=== PATIENT | female | born 1980 | race African-American/Black ===

== ENCOUNTER 2017-10-07 14:00 | Inpatient (IN) | payer OTHER ==
[2017-10-07] MEDS: ELECTROLYTE-148 SOLN 1,000 ML IV SCH ×2 (15:00→18:39)
[2017-10-07 15:47] VITALS: BMI 33.5
[2017-10-07] MEDS ORDERED: FENTANYL/BUPIVACAINE/NS/PF - PCEA - 50 ML DISP.SYRIN EP ONE (16:25)
[2017-10-07 16:28] LABS: BASO % 0.3 % (0-2.0); EOS % 0.3 % (0-4.5); HEMATOCRIT 39.3 % (32.4-45.2); HEMOGLOBIN 12.6 GM/dL (10.7-15.3); LYMPH % 9.4 % (8-40); MCH 24.3 pg (25.7-33.7); MEAN PLT VOLUME 10.1 fl (7.5-11.1); MONO % 5.7 % (3.8-10.2); NEUT % 84.3 % (42.8-82.8); PLATELET COUNT 171 K/MM3 (134-434); RBC 5.18 M/mm3 (3.60-5.2); RDW 15.8 % (11.6-15.6); WHITE BLOOD COUNT 9.4 K/mm3 (4.0-10.0)
--- NOTE | 2017-10-07 16:29 | HP ---
Past Medical History - Admission History of Present Illness: 36 yo @ 40 0/7 by first trimester ultrasound, EDC 10/07/2017 complicated by: 1. 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 AMA - reassuring cell-free DNA and AFP Patient reports contractions which began at 1230 which increased in intensity and frequency. She reports movement, denies leakage of fluid or vaginal bleeding. 3. Low lying placenta - resolved 4. Obesity - 20 lb weight gain this She was found to be 2 cm, with occasional variable decelerations. The decision was made for admission for monitoring. History Source: Patient Limitations to Obtaining History: No Limitations - Past Medical History Cardiovascular: No: HTN ...: 1 ...Para: 0 ...Term: 0 ...: 0 ...Spon : 0 ...Induced : 0 ...Multiple Gestation: 0 ...LMP: 01/02/17 ... Weeks Gestation by Dates: 39.5 ...EDC by Dates: 10/09/16 ...EDC by Sono: 10/07/16 Heme/Onc: No: Anemia Endocrine: Yes: Other (PCOS) - Past Surgical History Past Surgical History: Yes: None Hx Myomectomy: No Hx Transabdominal Cerclage: No - Smoking History Smoking history: Never smoked Have you smoked in the past 12 months: No - Alcohol/Substance Use Hx Alcohol Use: No History of Substance Use: reports: None - Social History History of Recent Travel: No Home Medications - Allergies Allergies/Adverse Reactions: Allergies Allergy/AdvReac Type Severity Reaction Status Date / Time No Known Allergies Allergy Verified 10/07/17 15:35 - Home Medications Home Medications: Ambulatory Orders Vitamins (Sjr) - 1 tab PO DAILY 10/07/17 Family Disease History - Family Disease History Family History: Denies Review of Systems - Review of Systems Constitutional: reports: No Symptoms HENT: reports: No Symptoms Neck: reports: No Symptoms Cardiovascular: reports: No Symptoms Respiratory: reports: No Symptoms Gastrointestinal: reports: No Symptoms Genitourinary: reports: No Symptoms Musculoskeletal: reports: No Symptoms Integumentary: reports: No Symptoms Endocrine: reports: No Symptoms Hematology/Lymphatic: reports: No Symptoms Psychiatric: reports: No Symptoms Physical Exam - Maternity Vital Signs: Vital Signs Temperature 98.1 F 10/07/17 15:15 Pulse Rate 79 10/07/17 15:15 Respiratory Rate 20 10/07/17 15:15 Blood Pressure 107/56 10/07/17 15:15 O2 Sat by Pulse Oximetry (%) Constitutional: Yes: Well Nourished, No Distress, Calm Neck: Yes: Supple Cardiovascular: Yes: Regular Rate and Rhythm Lungs: Clear to auscultation - Abdominal Exam/OB Fundal Height: 40 Number of Fetuses: Single Presentation: Vertex Contractions: Yes Regularity: Regular Intensity: Moderate Monitor Mode: External Heart Rate (range): 135 Category: II Accelerations: Non-Uniform Decelerations: Variable - Vaginal Exam/OB Vaginal Bleediing: No Speculum Exam: No Dilatation (cm): 2 Effacement (%): 80 Amniotic Membrane Status: Intact Amniotic Fluid: Yes: Clear Station: -2 - Physical Exam Musculoskeletal: Yes: WNL Extremities: Yes: WNL Edema: No Psychiatric: Yes: Alert, Oriented - Labs Lab Results: PNL - O positive, antibody negative; RPR NR; HBS Ag negative; HIV negative; GBS negative; Rubella immune Hemorrhage Risk Assessment - Risk Factors Medium Risk Factors: Yes: None High Risk Factors: Yes: None Risk Score: 1 Risk Level: Medium Risk Assessment/Plan 36 yo @ 40 wks early labor, category I FHT 1. Admit to L&D 2. Routine labs collected and sent 3. GBS negative 4. Category II FHT, placed on L lateral position, O2 via facemask; will monitor 5. Will offer pain control upon patients request 6. Will continue expectant management
[2017-10-07 16:44] LABS: INR 0.98 (0.82-1.09); PROTHROMBIN TIME (PATIENT) 11.1 SEC (9.98-11.88)
[2017-10-07 16:47] LABS: ACTIVATED PTT 28.8 SECONDS (26.9-34.4)
[2017-10-07] MEDS ORDERED: FENTANYL/BUPIVACAINE/NS/PF - PCEA - 50 ML DISP.SYRIN EP SCH ×2 (17:00→17:15)
[2017-10-07] MEDS ORDERED: NALOXONE HCL 0.4 MG/ML VIAL IVPUSH PRN (17:11)
[2017-10-07 17:33] LABS: ANION GAP 11 (8-16); BLOOD UREA NITROGEN 7 mg/dL (7-18); CALCIUM 8.4 mg/dL (8.5-10.1); CHLORIDE 104 mmol/L (98-107); CO2 22 mmol/L (21-32); CREATININE 0.4 mg/dL (0.55-1.02); GLUCOSE,RANDOM 84 mg/dL (74-106); SODIUM 137 mmol/L (136-145)
--- NOTE | 2017-10-07 19:33 | PN ---
Progress Note (short form) - Note Progress Note: Patient examined found to be 3 cm. Reviewed FHT 180 minimal variability, variable decelerations Discussed nonreassuring tracing, no improvement with change in maternal position, O2 via facemask, IV fluid bolus. Reviewed need for intervention and patient is currently remote from vaginal delivery, plan for primary delivery. Discussed risks including but not limited to infection, bleeding requiring transfusion and damage to surrounding organs such as the bowel or bladder. Discussed risk of injury to . Discussed risk of wound infection and separation. Discussed need for planning of future children and possibility of abnormal placentation. All questions answered. Patient expressed understanding. Nursing and OR staff notified. Will proceed to OR
[2017-10-07] MEDS ORDERED: ceFAZolin SODIUM 1 GM VIAL ONE (19:36)
[2017-10-07] MEDS ORDERED: SODIUM CHLORIDE 0.9% P/F 10 ML VIAL IJ ONE (19:36)
[2017-10-07] MEDS ORDERED: ePHEDrine SULFATE 50 MG/1 ML AMPULE ONE (19:40)
[2017-10-07] MEDS ORDERED: ONDANSETRON 4 MG/2 ML VIAL IVPUSH PRN (19:42)
[2017-10-07] MEDS ORDERED: OXYTOCIN 10 UNITS/ML VIAL ONE (19:56)
[2017-10-07] MEDS ORDERED: KETOROLAC TROMETHAMINE 30 MG/1 ML VIAL ONE (19:59)
[2017-10-07] MEDS ORDERED: morphine SULFATE/Preservative Free 0.5 MG/ML (1cc Syringe) ONE ×3 (20:05)
[2017-10-07] MEDS ORDERED: PHENYLEPHRINE HCL 10 MG/1 ML SINGLE DOSE VIAL ONE (20:42)
[2017-10-07 21:18] LABS: VENOUS PC02 47.3 mmHg (38-52); VENOUS PH 7.29 (7.32-7.42); VENOUS PO2 21.1 mmHg (28-48)
--- NOTE | 2017-10-07 21:20 | PN ---
Delivery - Delivery Type of Anesthesia: Epidural, Spinal Episiotomy/Laceration: None EBL (cc): 600 Delivery, Single - Stages of Labor Date 1st Stage Initiatied: 10/07/17 Time 1st Stage Initiated: 12:00 Date of Delivery: 10/07/17 Time of Delivery: 20:19 Time Placenta Delivered: 20:20 - Condition of Infant Canine Service Teacher/Microwave Technician Present: Yes Name: Marielle Garnica Infant Gender: Male Weight: 6 lb 10 oz Position: Left, OT Total Hours ROM (Hrs/Mins): 1h15m - 1 Minute Total Score: 9 5 Minutes Total Score: 9 - Feeding Plan Initial Plan: Exclusive throughout hospitalization Remarks - Remarks Remarks: Surgeon: Fran Assist: Oma Anesthesia: Guon / De Dios IVF: 900 UOP: 150 Findings: Male LOT position, meconium fluid, 9,9, wt 6-10; length 20.5; right paratubal cyst; polycystic-appearing ovaries, normal fallopian tubes bilaterally Dictation: [id number]
[2017-10-07] MEDS ORDERED: SENNOSIDES/DOCUSATE COMBO (SENNA PLUS) TABLET (UD) PO PRN (21:22)
[2017-10-07] MEDS ORDERED: METHYLERGONOVINE MALEATE 0.2 MG/1 ML AMP IM PRN (21:22)
[2017-10-07] MEDS ORDERED: BENZOCAINE 28 GM HEMORRHOIDAL OINTMENT TP PRN (21:22)
[2017-10-07] MEDS ORDERED: oxyCODONE HCL 5 MG TABLET PO PRN ×2 (21:22)
[2017-10-07] MEDS ORDERED: WITCH HAZEL 50% (TUCKS) 40 PAD/JAR PAD TP PRN (21:22)
[2017-10-07] MEDS ORDERED: BENZOCAINE 20% 57 GM BOTTLE TP PRN (21:22)
[2017-10-07] MEDS ORDERED: OXYTOCIN 20 UNITS in 0.9% NS 20 UNIT/1,000 ML INFUS.BAG IV ONE (21:25)
[2017-10-07] MEDS: OXYTOCIN 20 UNITS in 0.9% NS 20 UNIT/1,000 ML INFUS.BAG IV SCH (21:30)
[2017-10-07] MEDS ORDERED: IBUPROFEN 800 MG/8 ML IJ IVPB ONE (21:37)
[2017-10-07] MEDS: IBUPROFEN 800 MG/8 ML IJ IVPB PRN (21:40)
[2017-10-08] MEDS: OXYTOCIN 20 UNITS in 0.9% NS 20 UNIT/1,000 ML INFUS.BAG IV SCH ×2 (05:12→21:58)
--- NOTE | 2017-10-08 07:07 | PN ---
Post Progress Note - Subjective Subjective: Patient without acute complaints. Tolerating clears, without complaints of nausea or vomiting. No ambulation yet. Denies fevers or chills. Denies chest pain, shortness of breath Pain well controlled with IV medication Patel in place, draining clear fluid Denies flatus. Type of Delivery: Primary C/S Vital Signs: Vital Signs Temperature 97.3 F L 10/08/17 06:00 Pulse Rate 97 H 10/08/17 06:00 Respiratory Rate 18 10/08/17 06:00 Blood Pressure 110/59 10/08/17 06:00 O2 Sat by Pulse Oximetry (%) 100 10/07/17 22:15 Breast Exam: Yes: Engorged Uterus: Yes: Fundus Firm, Fundus below umbilicus Incision: Yes: Dressing dry and intact. No: Redness, Oozing Abdomen/GI: Yes: Abdomen soft, Tender (mild incisional), Passing flatus, Tolerating PO Lochia: Yes: Serosa Extremities: Yes: Calves non-tender, Edema (trace) Activity: Ambulating - Labs Labs: CBC WBC 9.4 K/mm3 (4.0-10.0) 10/07/17 16:20 RBC 5.18 M/mm3 (3.60-5.2) 10/07/17 16:20 Hgb 12.6 GM/dL (10.7-15.3) 10/07/17 16:20 Hct 39.3 % (32.4-45.2) 10/07/17 16:20 MCV 76.0 fl (80-96) L 10/07/17 16:20 MCH 24.3 pg (25.7-33.7) L 10/07/17 16:20 MCHC 32.0 g/dl (32.0-36.0) 10/07/17 16:20 RDW 15.8 % (11.6-15.6) H 10/07/17 16:20 Plt Count 171 K/MM3 (134-434) 10/07/17 16:20 MPV 10.1 fl (7.5-11.1) 10/07/17 16:20 Neutrophils % 84.3 % (42.8-82.8) H 10/07/17 16:20 Lymphocytes % 9.4 % (8-40) 10/07/17 16:20 Monocytes % 5.7 % (3.8-10.2) 10/07/17 16:20 Eosinophils % 0.3 % (0-4.5) 10/07/17 16:20 Basophils % 0.3 % (0-2.0) 10/07/17 16:20 Assessment/Plan 36 yo POD # 1 s/p primary CD, afebrile, vital signs stable, doing well 1. Continue routine postoperative care. 2. Follow up AM CBC 3. Rh positive status, no rhogam indicated. 4. Encourage ambulation and incentive spirometer use 5. Continue oral pain medication 6. Anticipate discharge home postoperative day #3 or #4
--- NOTE | 2017-10-08 07:32 | OP ---
DATE OF OPERATION: 10/07/2017 PREOPERATIVE DIAGNOSIS: Non-reassuring tracing. POSTOPERATIVE DIAGNOSIS: Non-reassuring tracing. SURGEON: Spencer Cervantes M.D. LUBRICATING MACHINE TENDER: Evy Ernandez M.D. ANESTHESIOLOGIST: Albin Cummins M.D., and Brandy De Dios DO INTRAVENOUS GIVEN: 900 URINE OUTPUT: 150. ESTIMATED BLOOD LOSS: 600. FINDINGS: A male in LOT position, Apgars 9 and 9. Meconium fluid. Nuchal cord. Weight 6 pounds 10 pounds, length 20-1/2 inches. A right paratubal cyst. Bilateral polycystic-appearing ovaries. Normal fallopian tubes bilaterally. INDICATIONS: The patient is a 36-year-old 1, para 0, with a history of GDMA1, who presented with the chief complaint contractions. She was found to have variable decelerations spontaneously. She was monitored, and she was noted to have tachycardia, which was not responsive to change in maternal position, IV fluid bolus and oxygen via face mask. She was counseled regarding the need for a primary for non-reassuring tracing. She was counseled regarding the risks, benefits, alternatives and complications of the procedure, including infection, bleeding, damage to surrounding organs, such as bowel, bladder and ureters, and injury to baby. She expressed understanding and was brought to the operating room. DESCRIPTION OF PROCEDURE: When anesthesia was found to be adequate, the patient was prepped and draped in the normal sterile fashion and placed in the dorsal supine position with a leftward tilt. An approximately 11-cm skin incision was made with a knife and carried down to the underlying rectus muscle using Bovie electrocautery. The fascia was nicked in the midline and extended laterally using Foley scissors. Attention was brought to the inferior portion, which was tented up using Sharri clamps and resected off the underlying rectus muscles using the Foley scissors. Attention was brought to the superior portion, where, in a similar fashion, it was tented up using Sharri clamps and dissected off the underlying rectus muscles using Foley scissors. The rectus muscles were in the midline, and the peritoneum was entered bluntly and extended laterally and superiorly. The vesicouterine peritoneum was identified, entered sharply, and extended laterally using Metzenbaum scissors. Hysterotomy was performed and extended laterally using bandage scissors. The 's head was brought to the hysterotomy site. Caput was noted and acynclitic. The infant's head was delivered. Nuchal cord was noted and reduced. The shoulders and body followed, without difficulty. The cord was clamped and cut. Cord blood and cord gases were collected and sent. The infant was handed to awaiting NICU staff. The placenta was extracted. The uterus was cleared of all clot and debris. The uterus was closed using 0 Biosyn in running layers; the 2nd layer was an imbricated layer. The vesicouterine peritoneum was reapproximated using 0 Biosyn in running fashion. The bilateral ovaries were noted to be polycystic appearing, and a right paratubal cyst was noted and a portion of it was sent to Pathology. The bilateral fallopian tubes were noted to be normal bilaterally. Irrigation was performed. The peritoneum was closed using 2-0 Biosyn in running fashion. The rectus muscles were reapproximated using 0 Biosyn in interrupted fashion. The fascia was closed using 0 Vicryl in a running fashion. The subcutaneous fat was closed using 2-0 Biosyn in an interrupted fashion. The skin was reapproximated using 3-0 Vicryl. The patient tolerated the procedure well. Estimated blood loss was 600 mL. The patient was brought to the recovery room in stable condition. SPENCER CERVANTES M.D. [id number]
[2017-10-08 07:50] LABS: BASO % 0.1 % (0-2.0); EOS % 0.1 % (0-4.5); HEMOGLOBIN 10.6 GM/dL (10.7-15.3); LYMPH % 6.4 % (8-40); MCHC 31.2 g/dl (32.0-36.0); MONO % 5.1 % (3.8-10.2); NEUT % 88.3 % (42.8-82.8); PLATELET COUNT 171 K/MM3 (134-434); RBC 4.42 M/mm3 (3.60-5.2); WHITE BLOOD COUNT 12.4 K/mm3 (4.0-10.0)
[2017-10-08] MEDS: IBUPROFEN 800 MG/8 ML IJ IVPB PRN (08:05)
[2017-10-08] MEDS: ENOXAPARIN NA (PORCINE) 40 MG/0.4 ML DISP.SYRIN SQ SCH (09:22)
--- NOTE | 2017-10-08 12:07 | PN ---
Progress Note (short form) - Note Progress Note: Pt s/p csection day#1. Doing well, no complaints. Continute current treatment
[2017-10-08] MEDS: SIMETHICONE 80 MG TAB.CHEW (FP) PO PRN ×2 (16:35→23:25)
[2017-10-08] MEDS: ACETAMINOPHEN 325 MG TABLET (FP) PO PRN ×2 (16:35→23:26)
[2017-10-08] MEDS: IBUPROFEN 600 MG TABLET (FP) PO PRN ×2 (16:36→23:25)
[2017-10-08] MEDS ORDERED: BISACODYL 10 MG SUPP.RECT RC PRN (21:23)
--- NOTE | 2017-10-09 07:34 | PN ---
Progress Note (short form) - Note Progress Note: pod 2 , afebrile , has mild cramps CBC, BMP 10/08/17 07:03 10/07/17 16:20 abdomen soft, no distension , no cva Last Vital Signs Temp Pulse Resp BP Pulse Ox 97.9 F 96 H 18 126/71 100 10/08/17 22:00 10/08/17 22:00 10/08/17 22:00 10/08/17 22:00 10/07/17 22:15 incision dry, clean uterus firm no calf tenderness no excess vaginal bleeding impression pod 2 afebrile ,, ambulating, passing gas plan advance diet, cbc in am pain management
[2017-10-09] MEDS: SIMETHICONE 80 MG TAB.CHEW (FP) PO PRN ×3 (08:53→20:46)
[2017-10-09] MEDS: IBUPROFEN 600 MG TABLET (FP) PO PRN ×3 (08:53→20:46)
[2017-10-09] MEDS: ACETAMINOPHEN 325 MG TABLET (FP) PO PRN ×3 (08:54→20:46)
[2017-10-09] MEDS: ENOXAPARIN NA (PORCINE) 40 MG/0.4 ML DISP.SYRIN SQ SCH (10:50)
[2017-10-10] MEDS: IBUPROFEN 600 MG TABLET (FP) PO PRN ×2 (04:04→09:38)
[2017-10-10] MEDS: SIMETHICONE 80 MG TAB.CHEW (FP) PO PRN ×2 (04:04→09:38)
[2017-10-10] MEDS: ACETAMINOPHEN 325 MG TABLET (FP) PO PRN ×2 (04:05→09:39)
[2017-10-10 07:28] LABS: BASO % 0.4 % (0-2.0); EOS % 1.6 % (0-4.5); HEMOGLOBIN 9.5 GM/dL (10.7-15.3); LYMPH % 19.2 % (8-40); MCH 24.2 pg (25.7-33.7); MCHC 31.6 g/dl (32.0-36.0); MEAN CELL VOLUME 76.7 fl (80-96); MEAN PLT VOLUME 9.9 fl (7.5-11.1); MONO % 6.7 % (3.8-10.2); NEUT % 72.1 % (42.8-82.8); PLATELET COUNT 173 K/MM3 (134-434); RBC 3.91 M/mm3 (3.60-5.2); RDW 16.5 % (11.6-15.6); WHITE BLOOD COUNT 8.3 K/mm3 (4.0-10.0)
[2017-10-10] MEDS: ENOXAPARIN NA (PORCINE) 40 MG/0.4 ML DISP.SYRIN SQ SCH (09:40)
--- NOTE | 2017-10-10 10:51 | DS ---
Physical Exam-WASTE PICKER Vital Signs: Vital Signs Temperature 97.9 F 10/09/17 22:00 Pulse Rate 95 H 10/09/17 22:00 Respiratory Rate 18 10/09/17 22:00 Blood Pressure 124/76 10/09/17 22:00 O2 Sat by Pulse Oximetry (%) 100 10/07/17 22:15 Constitutional: Yes: Well Nourished, No Distress, Calm Eyes: Yes: WNL, Conjunctiva Clear HENT: Yes: WNL, Atraumatic, Normocephalic Neck: Yes: WNL, Supple, Trachea Midline Cardiovascular: Yes: WNL, Regular Rate and Rhythm Respiratory: Yes: WNL, Regular, CTA Bilaterally Gastrointestinal: Yes: WNL, Normal Bowel Sounds, Soft ...Rectal Exam: Yes: WNL, Deferred Renal/: Yes: WNL ....Post : Yes: Uterus firm, Uterus non-tender, Slight lochia rubra Breast(s): Yes: WNL Musculoskeletal: Yes: WNL Extremities: Yes: WNL Edema: LLE: Trace, RLE: Trace Integumentary: Yes: WNL Wound/Incision: Yes: Clean/Dry, Well Approximated, Sutures Intact, Steri Strips , Open to air Neurological: Yes: WNL, Alert, Oriented ...Motor Strength: WNL Psychiatric: Yes: WNL, Alert, Oriented Labs: CBC, BMP 10/10/17 07:15 10/07/17 16:20 Delivery - Delivery Section: Primary, Low Flap Transverse Type of Anesthesia: Epidural, Spinal Episiotomy/Laceration: None EBL (cc): 600 Delivery, Single - Stages of Labor Date 1st Stage Initiatied: 10/07/17 Time 1st Stage Initiated: 12:00 Date of Delivery: 10/07/17 Time of Delivery: 20:19 Time Placenta Delivered: 20:20 Placenta: Yes: Manual Removal, Normal Configuration - Condition of Infant Audio Tape Librarian/Traffic Operations Manager Present: Yes Name: Marielle Garnica Infant Gender: Male Weight: 3.005 kg Position: Left, OT Total Hours ROM (Hrs/Mins): 1h15m - 1 Minute Total Score: 9 5 Minutes Total Score: 9 - [place] Feeding Plan Initial Plan: Exclusive throughout hospitalization Discharge Summary Reason For Visit: LABOR ADMISSION at term Non-reassuring FHT Procedures: Principal: Primary LT C/S Other Procedures: Excision of paratubal cyst Hospital Course: Normal recovery Condition: Good - Instructions Diet, Activity, Other Instructions: Physical activity Resume your normal everyday activity as tolerated no heavy lifting or exercise until seen by your surgeon. You may walk unlimited katherine of and climb stairs. You may resume driving the car when you feel safe and comfortable behind the wheel. No sexual activity as instructed. Wound care If you have a bandage, leave it on, and keep dry for 48-72 hours. After that time discard the outer bandage. If they are tapes on the skin under the out of bandage leave them in place. They will peel off in the next 7 to 10 days. Do Not Peel them off. You may shower the day after surgery. If there are tapes present on the skin, you may shower over them. Diet There are no dietary restrictions. Eat healthy, high-fiber foods. Drink 6 to 8 glasses of liquid each day. This will assist in keeping your bowels are regular. Pain management You may take Tylenol or acetaminophen or Ibuprofen (for example, Motrin, Advil etc.) from my pain prescription medication is ordered should be taken as prescribed for moderate to severe pain. Call MD for any of the following: Severe pain not relieved by medication Fever of 101 or higher Excessive bleeding or drainage on dressing Inability to urinate Referrals: Murali Tracy MD [Staff Physician] - Disposition: HOME - Home Medications Comprehensive Discharge Medication List: Ambulatory Orders Vitamins (Sjr) - 1 tab PO DAILY 10/07/17
[2017-10-10 12:40] VITALS: BP 139/80; PULSE 89; TEMP 97.8
== END 2017-10-10 12:15 | disposition home or self-care (01) ==
LOC: JDEL 14:00 → JLDR 15:15 → J3W 22:45
PROVIDERS: ADMIT Obstetrics & Gynecology; ATTEND Obstetrics & Gynecology
DX: O60.00 Preterm labor without delivery, unspecified trimester (principal)
CPT/HCPCS: 36415; 59025; 80048; 82803; 85025; 85610; 85730; 86593; 86850; 86900; 86901; 94010